=== PATIENT | female | born 1975 | race Caucasian/White ===

== ENCOUNTER → 2020-07-01 | Outpatient (CLI) | payer OTHER ==
[2020-07-01 11:07] VITALS: BP 115/77; PULSE 85; RESP 18; TEMP 98.1
--- NOTE | 2020-07-01 11:38 | P.GSHP ---
History of Present Illness H&P Date: 07/01/20 Chief Complaint: mass right breast Nilda is a 44 year old white female seen in consultation for Dr. Morejon regarding a right breast mass. She does not feel any lumps masses or nodules in her breast. She had a bilateral mammogram on 8212-28, the mammogram she initially had artifact in the axillary regions bilaterally. Repeat medial lateral oblique views were recommended following cleansing of suspected deodorant. The patient states that this was done in the impression was benign BIRADS 2. The patient also had an ultrasound performed on the same date. The ultrasound revealed in the 9 o'clock position of the right breast a circumscribed mass measuring 0.9 x 0.9 cm. Cyst aspiration was recommended and if not possible that a biopsy should be up attained. This was not done. The patient has never had any soft cyst aspirated in her breast and never had any breast biopsies. The patient herself has no complaints related to her breasts. She is not complaining of any pain, nipple discharge, recent infection or trauma in the breast. caffeine: 2 cups/day nicotine: none thro-bromine- daily Family History: uncle maternal: bone marrow cancer Hormonal History: menarche: 13 , breast fed: 1, first born at 17 periods regular BCP: 10 years, not using them now Surgical history: irregular cells at the cervix removed Medical history: hyperthyroid had radiation now hypo thyroid Social History: nicotine: none alcohol: none drugs: none - Constitutional Constitutional: Denies chills, Denies fever - EENT Eyes: denies blurred vision, denies pain Ears: deny: decreased hearing, tinnitus Ears, nose, mouth and throat: Denies headache, Denies sore throat - Breasts Breasts: bilateral: as per HPI - Cardiovascular Cardiovascular: Denies chest pain, Denies shortness of breath - Respiratory Respiratory: Denies cough, Denies 7 - Gastrointestinal Gastrointestinal: Denies abdominal pain, Denies diarrhea, Denies nausea, Denies vomiting - Genitourinary (Female) Genitourinary: Denies dysuria, Denies hematuria - Menstruation Menstruation: Reports period normal - Musculoskeletal Musculoskeletal: Denies myalgias - Integumentary Integumentary: Denies pruritus, Denies rash - Neurological Neurological: Denies numbness, Denies weakness - Psychiatric Psychiatric: Denies anxiety, Denies depression - Endocrine Comment: hyperthyroid than treated with radiation and became hypothyroid - Hematologic/Lymphatic Comment: none Hematologic/Lymphatic: Reports as per HPI - Allergic/Immunologic Allergic/Immunologic: Reports as per HPI Past Medical History History of Any Multi-Drug Resistant Organisms: None Reported Smoking Status: Former smoker Medications and Allergies Home Medications Medication Instructions Recorded Confirmed Type Thyroid,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] 120 mg PO DAILY 07/01/20 07/01/20 History Allergies Allergy/AdvReac Type Severity Reaction Status Date / Time No Known Allergies Allergy Unverified 07/01/20 11:03 Surgical - Exam Vital Signs Temp Pulse Resp BP Pulse Ox 98.1 F 85 18 115/77 99 07/01/20 11:04 07/01/20 11:04 07/01/20 11:04 07/01/20 11:04 07/01/20 11:04 BMI 27.3 - General well developed, well nourished, no distress - Eyes normal ocular movement - ENT normal nares - Neck no masses, trachea midline, no lymphadectomy, no venous distension - Cardiovascular Rhythm: regular Heart Sounds: normal: S1, S2 - Abdomen Abdomen: soft, non tender, no guarding, no rigid, no rebound - Integumentary normal turgor - Neurologic no disoriented, no combative - Musculoskeletal normal gait, normal posture - Psychiatric oriented to time, oriented to person, oriented to place, speech is normal, memory intact breast exam: BRA: 36B inspection: grade 2 ptosis bilateral Palpation: Right breast: Multi-positional exam fibrocystic changes, no dominant masses or nodules of concern Right axilla: No adenopathy of concern Left breast: Multiple positional exam fibrocystic changes, no dominant masses or nodules of concern Left axilla: No adenopathy of concern Results Mammogram and ultrasound results reviewed Assessment and Plan Assessment: Impression: 1. Fibrocystic breast changes, no dominant masses or nodules of concern in either breast 2. Radiographic abnormality right breast at 9:00 in January 2020 3. Hypothyroid 4. Patient does drink caffeinated beverages and eat chocolate on a daily basis Plan: 1. We will discuss modification of lifestyle as caffeine and theobromine may aggravate fibrocystic breast changes 2. Repeat right breast ultrasound to see if cystic area is still present if so may recommend in aspiration/biopsy 3. Follow-up after ultrasound completed Cc: Dr. Nora Zamora I discussed with the patient the findings on the ultrasound of February 05, 2020. We have discussed that this is most likely a cystic lesion which may or may not be present at this time. She is going to have a repeat ultrasound. If it is present she will have aspirations or possible biopsy. We discussed that caffiene and theobromine can aggravate fibrocystic breast changes. She understands and will consider modification of her lifestyle. encounter 45 minutes, > 50 % of time in planning and counselling
== END | disposition home or self-care (01) ==
LOC: WWCWWP 10:57
PROVIDERS: ATTEND Surgery
DX: Z53.9 Procedure and treatment not carried out, unspecified reason (principal)

== ENCOUNTER → 2020-07-14 | Day surgery (SDC) | payer OTHER ==
--- NOTE | 2020-07-14 14:53 | USB ---
EXAMINATION TYPE: US breast aspiration single RT DATE OF EXAM: 07/14/2020 CLINICAL HISTORY: R92.8 ABN MAMMO. TECHNIQUE: Ultrasound guided vaccuum assisted cyst aspiration of right breast. COMPARISON: 02/05/2020 outside breast ultrasound FINDINGS: The ultrasound guided core biopsy procedure was explained to the patient. The risks, benefits, alternatives were discussed. An informed consent was then obtained. Timeout was performed. The patient was placed in supine positioning for imaging and for the procedure. The overlying skin was prepped with betadine and sterilely draped in usual sterile fashion. Lidocaine 1% was used as anesthetic into the skin and deeper breast tissue up to area of concern in the breast. Under ultrasound guidance an 18-gauge needle was used to aspirate was transferred from the cystlike structure. This was performed under ultrasound guidance and advanced into the cyst. There appears to be complete collapse of the cyst. A biopsy clip was left at the biopsy site. As noted approximately 0.5 cm retraction following deployment. Good hemostasis was obtained with direct pressure. Discharge instructions were discussed with the patient. The patient will follow up with the referring physician for results. Postprocedure mammogram: The patient was transferred to mammography for physician ordered post procedure mammogram for clip placement verification. The clip is near the expected region of the biopsy. Note this probably has 0.5 cm migration inferior laterally. The patient tolerated the procedure well without any immediate complication. The patient was discharged to home in stable condition. IMPRESSION: 1. Successful ultrasound guided cyst aspiration right breast. 2. There may be 0.5 cm clip migration laterally following deployment Pathology Results: Benign RIGHT BREAST, ASPIRATE, CYST ASPIRATION: Few degenerated cells and non-specific debris. Few clusters of benign appearing cells with features favoring apocrine metaplasia. Scattered inflammatory cells with rare macrophages present. Recommendation Follow up mammogram of the right breast in 6 months. [facility]
[2020-07-14 15:31] VITALS: BP 107/71; PULSE 74; RESP 16; TEMP 98.4
--- NOTE | 2020-07-16 07:59 | MM ---
Reason for exam: additional evaluation requested from abnormal screening. Last mammogram was performed 5 years and 10 months ago. History: Took hormonal contraceptives for 10 years. MG Diagnostic Mammo RT Wo CAD CC and ML view(s) were taken of the right breast. Prior study comparison: September 07, 2014, bilateral MG diagnostic mammo w CAD [facility]. ASSESSMENT: Post procedure mammogram for marker placement RECOMMENDATION: Ultrasound of the right breast in 6 months. PENDING PATHOLOGY RESULTS.
== END ==
LOC: RADUSWWP 12:49
PROVIDERS: ATTEND Surgery
DX: N60.01 Solitary cyst of right breast (principal); R92.8 Other abnormal and inconclusive findings on diagnostic imaging of breast
CPT/HCPCS: 88108; 88305; 77065; 76942; 19000; A4648; J2001

== ENCOUNTER → 2021-03-31 | Outpatient (CLI) | payer OTHER ==
--- NOTE | 2021-04-01 09:22 | MM ---
Reason for exam: follow-up at short interval from prior study. Last mammogram was performed 9 months ago. History: Benign US breast aspiration single RT of the right breast, July 14, 2020. Took hormonal contraceptives for 10 years. Physical Findings: Nurse did not find any significant physical abnormalities on exam. MG Diagnostic Mammo w CAD [place] Bilateral spot compression CC and LM view(s) were taken. Prior study comparison: July 14, 2020, right breast MG diagnostic mammo RT wo CAD. September 07, 2014, bilateral MG diagnostic mammo w CAD [place]. There are scattered fibroglandular densities. Previous mammotome biopsy in the right breast. Superior right asymmetric density appears to disperse. Central posterior oval 6mm left asymmetric density drops below the nipple line on the true lateral, it persists on spot MLO. These results were verbally communicated with the patient and result sheet given to the patient on 03/31/21. ASSESSMENT: Incomplete: need additional imaging evaluation, BI-RAD 0 RECOMMENDATION: Ultrasound of both breasts. (right prior biopsy site and upper outer quadrant, left lower outer quadrant)
--- NOTE | 2021-04-01 09:23 | USB ---
Reason for exam: additional evaluation requested from abnormal screening. History: Benign US breast aspiration single RT of the right breast, July 14, 2020. Took hormonal contraceptives for 10 years. US Breast Limited BILAT Technologist: Loni Yip Right limited breast ultrasound including focal area of concern, retroareolar and axilla demonstrates a 0.7 x 0.6 x 0.3cm cystic lesion at 9 o'clock reaccumulated but smaller from before. Left limited breast ultrasound including focal area of concern, retroareolar and axilla demonstrates no cystic or solid lesion seen. Right scanned 9-12 o'clock. Left scanned 3-6 o'clock. These results were verbally communicated with the patient and result sheet given to the patient on 03/31/21. ASSESSMENT: Probably benign, BI-RAD 3 RECOMMENDATION: Follow-up diagnostic mammogram of the left breast in 6 months.
== END | disposition home or self-care (01) ==
LOC: RADMAMWWP 14:17
PROVIDERS: ATTEND Surgery
DX: N60.01 Solitary cyst of right breast (principal); N64.89 Other specified disorders of breast
CPT/HCPCS: 77066

== ENCOUNTER → 2022-05-10 | Outpatient (CLI) | payer OTHER ==
--- NOTE | 2022-05-10 11:26 | MM ---
Reason for Exam: Additional evaluation requested from prior study. Last mammogram was performed 1 year(s) and 1 month(s) ago. Patient History: Menarche at age 12. First Full-Term at age 17. Patient has history of breast feeding. Patient used Hormonal Contraceptives for 10 years. 07/14/2020, Benign Cyst Aspiration on the right side. Last menstrual period: 05/05/2022 Risk Values: Natasha 5 year model risk: 0.6%. NCI Lifetime model risk: 6.9%. Prior Study Comparison: 09/07/2014 Bilateral Diagnostic Mammogram, [facility]. 09/07/2014 Right Diagnostic Ultrasound, [facility]. 07/14/2020 Right Diagnostic Mammogram, [facility]. 03/31/2021 Bilateral Diagnostic Mammogram, [facility]. 03/31/2021 Bilateral Diagnostic Ultrasound, [facility]. Tissue Density: There are scattered fibroglandular densities. Findings: Analyzed By CAD. No evidence for mass or distortion. No suspicious constipation is evident. Overall Assessment: Benign, BI-RAD 2 Management: Screening Mammogram of both breasts in 1 year. A clinical breast exam by your physician is recommended on an annual basis and results should be correlated with mammographic findings. This exam should not preclude additional follow-up of suspicious palpable abnormalities. Results were given to the patient verbally at the time of exam. Electronically signed and approved by: Javier Sears M.D. Radiologis
== END | disposition home or self-care (01) ==
LOC: RADMAMWWP 10:48
PROVIDERS: ATTEND Family Medicine
DX: R92.8 Other abnormal and inconclusive findings on diagnostic imaging of breast (principal)
CPT/HCPCS: 77066

== ENCOUNTER → 2023-09-26 | Outpatient (CLI) | payer OTHER ==
--- NOTE | 2023-09-27 20:43 | MM ---
Reason for Exam: Screening (asymptomatic). Last mammogram was performed 1 year(s) and 5 month(s) ago. Patient History: Menarche at age 12. First Full-Term at age 17. Patient has history of breast feeding. Patient used Hormonal Contraceptives for 10 years. 07/14/2020, Benign Cyst Aspiration on the right side. Risk Values: Natasha 5 year model risk: 0.7%. NCI Lifetime model risk: 6.7%. Prior Study Comparison: 07/14/2020 Right Diagnostic Mammogram, [facility]. 03/31/2021 Bilateral Diagnostic Mammogram, [facility]. 05/10/2022 Bilateral MG diagnostic mammo w CAD [facility], [facility]. Tissue Density: There are scattered areas of fibroglandular density. Findings: Analyzed By CAD. Pattern appears stable. There is a focal asymmetry upper outer Right breast. Core marker is the posterior right breast. No significant interval changes are evident No suspicious groups of microcalcifications, spiculated or lobular masses, architectural distortion or other secondary signs of malignancy are mammographically apparent. Overall Assessment: Benign, BI-RAD 2 Management: Screening Mammogram of both breasts in 1 year. A negative mammogram report should not preclude additional follow up of suspicious palpable abnormalities. Patient should continue monthly self breast exam. A clinical breast exam by your physician is recommended on an annual basis and results should be correlated with mammographic findings. Note on Natasha scores and lifetime risk: 1. A Natasha score greater than 3% is considered moderate risk. If this is the case, consider specialist referral to assess eligibility for a risk reducing agent. 2. If overall lifetime risk for the development of breast cancer is 20% or higher, the patient may qualify for future screening with alternating mammogram and breast MRI. Electronically signed and approved by: Mukul Rodriguez D.O. Radiologis
== END | disposition home or self-care (01) ==
LOC: RADMAMWWP 13:21
PROVIDERS: ATTEND Family Medicine
DX: Z12.31 Encounter for screening mammogram for malignant neoplasm of breast (principal)
CPT/HCPCS: 77067